=== PATIENT | female | born 1995 | race Caucasian/White ===

== ENCOUNTER 2022-11-15 13:05 | Outpatient (OUT) | payer OTHER, SELFPAY ==
--- NOTE | 2022-11-15 13:05 | US_ITS ---
[address] [address] Patient Name: OLEGARIO MACKEY MRN: [id number] date: 1995 Sex: F Assigned Patient Location: US Current Patient Location: Accession/Order Number: [id number] Exam Date: 11/15/2022 13:05 Report Date: 11/15/2022 17:01 At the request of: KINJAL ARIAS Procedure: US OB >= 14 weeks Fetus EXAMINATION: US OB >= 14 weeks Fetus HISTORY: MISSED PERIOD COMPARISON: No relevant comparison available. FINDINGS: position: Transverse head maternal left Heart rate: 146 bpm BPD: 3.8 cm, 17 weeks 4 days, 59% Head circumference: 14.7 cm, 17 weeks 6 days, 65% Abdominal circumference: 12.7 cm, 18 weeks 2 days, 77% Femur length: 2.6 cm, 17 weeks 6 days, 62% Estimated weight: 222 g, 10 ounces, 83% Femur length abdominal circumference: 20.38 Femur length BPD: 67.98 Femur length head circumference: 17.6 Clinical age: 17 weeks 3 days Clinical MARK ANTHONY: 04/22/2023 Ultrasound age: 17 weeks 6 days Ultrasound MARK ANTHONY: 04/19/2023 US/US OB >= 14 weeks Fetus IMPRESSION: Viable intrauterine gestation measuring 17 weeks 6 days Electronically authenticated by: ADRIAN PAULINO Date: 11/15/2022 17:01
== END 2022-11-15 13:06 | disposition home or self-care (01) ==
LOC: US 13:06
PROVIDERS: Visit Provider Obstetrics & Gynecology
DX: Z34.92 Encounter for supervision of normal pregnancy, unspecified, second trimester (principal); Z3A.17 17 weeks gestation of pregnancy
CPT/HCPCS: 76815

== ENCOUNTER 2022-12-10 20:53 | Outpatient (REF) | payer OTHER, SELFPAY ==
[2022-12-13 22:07] LABS: Age Gdln ACOG Testing Note (.); IGP, rfx Aptima HPV ASCU Note (.)
== END 2022-12-10 20:54 | disposition home or self-care (01) ==
LOC: LAB 20:53
PROVIDERS: Visit Provider Obstetrics & Gynecology
DX: Z01.419 Encounter for gynecological examination (general) (routine) without abnormal findings (principal)
CPT/HCPCS: G0145

== ENCOUNTER 2022-12-13 14:27 | Outpatient (OUT) | payer OTHER, SELFPAY ==
--- NOTE | 2022-12-13 | US_ITS ---
[address] [address] Patient Name: OLEGARIO MACKEY MRN: [id number] date: 1995 Sex: F Assigned Patient Location: US Current Patient Location: US Accession/Order Number: [id number] Exam Date: 12/13/2022 14:28 Report Date: 12/13/2022 15:56 At the request of: KINJAL ARIAS Procedure: US OB anatomy EXAMINATION: US OB anatomy, US OB transvaginal HISTORY: ANATOMY COMPARISON: No relevant comparison available. TECHNIQUE: Transabdominal sonographic examination was performed for obstetrical and evaluation. FINDINGS: Number: 1 Heart Rate: 164.0 bpm H.B. /min Amniotic Fluid Volume: Subjectively normal Placental Location: Posterior with lower margin 1.8 cm from os. Cervix Length: 4.0 cm; closed. ANATOMY: Normal Structures -cerebellum, choroid plexus, cisterna magna, lateral cerebral ventricles, orbits, midline falx, hard palate, four-chamber heart, RVOT, LVOT, stomach, kidneys, bladder, umbilical cord insertion into abdomen, three-vessel cord, cervical spine, thoracic spine, lumbar spine, sacral spine, right upper extremity, left upper extremity, right lower extremity, left lower extremity. SUBOPTIMALLY SEEN: None ABNORMALITIES: None BIOMETRY: BPD: 5.2 cm 21 weeks 6 days HC: 19.6 cm 21 weeks 5 days AC: 16.9 cm 21 weeks 6 days FL: 3.8 cm 22 weeks 0 days EFW:460.0 grams; 70% FL/AC: 22.2 FL/BPD: 71.6 HC/AC: 1.2 GESTATIONAL AGE: Age by EDC: 21 weeks 3 days MARK ANTHONY by EDC: 04/22/2023 Age by current US: 21 weeks 6 days MARK ANTHONY by current US: 04/19/2023 US/US OB anatomy IMPRESSION: 1. Single live intrauterine with growth detailed above. Electronically authenticated by: FIGUEROA FRAIRE Date: 12/13/2022 15:56
--- NOTE | 2022-12-13 | US_ITS ---
[address] [address] Patient Name: OLEGARIO MACKEY MRN: [id number] date: 1995 Sex: F Assigned Patient Location: US Current Patient Location: Accession/Order Number: [id number] Exam Date: 12/13/2022 14:29 Report Date: 12/13/2022 15:56 At the request of: KINJAL ARIAS Procedure: US OB transvaginal EXAMINATION: US OB anatomy, US OB transvaginal HISTORY: ANATOMY COMPARISON: No relevant comparison available. TECHNIQUE: Transabdominal sonographic examination was performed for obstetrical and evaluation. FINDINGS: Number: 1 Heart Rate: 164.0 bpm H.B. /min Amniotic Fluid Volume: Subjectively normal Placental Location: Posterior with lower margin 1.8 cm from os. Cervix Length: 4.0 cm; closed. ANATOMY: Normal Structures -cerebellum, choroid plexus, cisterna magna, lateral cerebral ventricles, orbits, midline falx, hard palate, four-chamber heart, RVOT, LVOT, stomach, kidneys, bladder, umbilical cord insertion into abdomen, three-vessel cord, cervical spine, thoracic spine, lumbar spine, sacral spine, right upper extremity, left upper extremity, right lower extremity, left lower extremity. SUBOPTIMALLY SEEN: None ABNORMALITIES: None BIOMETRY: BPD: 5.2 cm 21 weeks 6 days HC: 19.6 cm 21 weeks 5 days AC: 16.9 cm 21 weeks 6 days FL: 3.8 cm 22 weeks 0 days EFW:460.0 grams; 70% FL/AC: 22.2 FL/BPD: 71.6 HC/AC: 1.2 GESTATIONAL AGE: Age by EDC: 21 weeks 3 days MARK ANTHONY by EDC: 04/22/2023 Age by current US: 21 weeks 6 days MARK ANTHONY by current US: 04/19/2023 US/US OB transvaginal IMPRESSION: 1. Single live intrauterine with growth detailed above. Electronically authenticated by: FIGUEROA FRAIRE Date: 12/13/2022 15:56
== END 2022-12-13 14:28 | disposition home or self-care (01) ==
LOC: US 14:27
PROVIDERS: Visit Provider Obstetrics & Gynecology
DX: Z36.89 Encounter for other specified antenatal screening (principal)
CPT/HCPCS: 76805; 76817

== ENCOUNTER 2022-12-19 15:23 | Outpatient (OUT) | payer OTHER, SELFPAY ==
[2022-12-19 16:28] LABS: Basophils Percent Auto 0.3 % (0.2-2.0); Eosinophils Absolute Auto 0.1 10^3/uL (0.0-0.7); Eosinophils Percent Auto 1.4 % (0.9-7.0); Hematocrit 35.4 % (36.0-48.0); Hemoglobin 11.9 g/dL (12.0-16.0); Immature Granulocytes Abs Auto 0.03 10^3/uL (0.00-0.03); Immature Granulocytes Pct Auto 0.3 % (0.0-0.5); Lymphocytes Percent Auto 23.4 % (20.5-60.0); Mean Corpuscular HGB Conc 33.6 g/dL (29.9-35.2); Mean Corpuscular Hemoglobin 30.6 pg (26.7-34.0); Monocytes Absolute Auto 0.5 10^3/uL (0.3-0.8); Monocytes Percent Auto 6.1 % (1.7-12.0); Neutrophils Absolute Auto 5.9 10^3/uL (1.4-6.5); Neutrophils Percent Auto 68.5 % (43.0-75.0); Platelet Count 236 10^3/uL (150-450); Red Blood Count 3.89 10^6/uL (4.20-5.40); Red Cell Distribution Width 12.6 % (11.0-15.0); White Blood Count 8.6 10^3/uL (4.0-11.0)
[2022-12-19 16:43] LABS: Estimated Average Glucose 80 mg/dL; Glycohemoglobin A1C 4.4 % (4.5-6.2)
[2022-12-19 17:05] LABS: Thyroid Stimulating Hormone 0.977 uIU/mL (0.358-3.740)
[2022-12-21 06:09] LABS: Rubella Antibodies, IgG 1.05 index (Immune >0.99)
[2022-12-21 07:09] LABS: HBsAg Screen Negative (Negative)
[2022-12-21 10:12] LABS: Rapid Plasma Reagin, Quant Non Reactive (NonRea<1:1)
[2022-12-25 12:11] LABS: HCV Ab Reactive (Non Reactive)
[2022-12-26 15:10] LABS: HIV Ab/p24 Ag Screen Non Reactive (Non Reactive)
== END 2022-12-19 15:24 | disposition home or self-care (01) ==
PROVIDERS: Visit Provider Obstetrics & Gynecology
DX: Z13.1 Encounter for screening for diabetes mellitus (principal); N92.6 Irregular menstruation, unspecified
CPT/HCPCS: 36415; 83036; 84443; 85025; 86592; 86706; 86762; 86803; 86850; 86900; 86901; 87086; 87389

== ENCOUNTER 2023-01-04 13:58 | Outpatient (OUT) | payer OTHER, SELFPAY ==
[2023-01-04 15:01] LABS: Basophils Percent Auto 0.3 % (0.2-2.0); Eosinophils Absolute Auto 0.1 10^3/uL (0.0-0.7); Eosinophils Percent Auto 0.9 % (0.9-7.0); Hemoglobin 11.5 g/dL (12.0-16.0); Immature Granulocytes Abs Auto 0.03 10^3/uL (0.00-0.03); Immature Granulocytes Pct Auto 0.3 % (0.0-0.5); Lymphocytes Absolute Auto 2.1 10^3/uL (1.2-3.8); Lymphocytes Percent Auto 20.4 % (20.5-60.0); Mean Corpuscular HGB Conc 33.8 g/dL (29.9-35.2); Mean Corpuscular Volume 91.6 fL (81.0-99.0); Mean Platelet Volume 10.2 fL (9.5-13.5); Monocytes Absolute Auto 0.5 10^3/uL (0.3-0.8); Monocytes Percent Auto 4.4 % (1.7-12.0); Neutrophils Absolute Auto 7.6 10^3/uL (1.4-6.5); Neutrophils Percent Auto 73.7 % (43.0-75.0); Platelet Count 289 10^3/uL (150-450); Red Blood Count 3.71 10^6/uL (4.20-5.40); Red Cell Distribution Width 12.4 % (11.0-15.0); White Blood Count 10.3 10^3/uL (4.0-11.0)
[2023-01-04 15:16] LABS: Glucose 1 Hour 151 mg/dL
== END 2023-01-04 13:59 | disposition home or self-care (01) ==
LOC: LAB 14:03
PROVIDERS: Visit Provider Obstetrics & Gynecology
DX: Z13.1 Encounter for screening for diabetes mellitus (principal)
CPT/HCPCS: 36415; 82950; 85025

== ENCOUNTER 2023-01-10 17:13 | Outpatient (OUT) | payer OTHER, SELFPAY ==
--- NOTE | 2023-01-10 17:18 | US_ITS ---
[address] [address] Patient Name: OLEGARIO MACKEY MRN: [id number] date: 1995 Sex: F Assigned Patient Location: US Current Patient Location: LAB Accession/Order Number: [id number] Exam Date: 01/10/2023 17:20 Report Date: 01/11/2023 17:35 At the request of: KINJAL ARIAS Procedure: US OB placenta EXAM: US OB placenta, US OB transvaginal HISTORY: PLACENTA PREVIA ANTEPARTUM O44.00 COMPARISON: None. TECHNIQUE: Transabdominal and transvaginal images FINDINGS: Jar[place] intrauterine gestation position: Cephalic presentation, longitudinal lie Placenta: Posterior. Grade 0. Placental edge is 4.4 cm from the internal os Heart rate: 151 bpm Cervix: Mild dilation of the endocervical canal measuring 2 mm. Funneling of the internal os measuring 1.3 cm in length and dilated up to 0.8 cm. The cervix measures a total of 4.7 cm long US/US OB placenta IMPRESSION: Dilation of the endocervical canal and funneling of the internal os Placental edge 4.4 cm from the internal os Electronically authenticated by: ADRIAN PAULINO Date: 01/11/2023 17:35
--- NOTE | 2023-01-10 17:19 | US_ITS ---
[address] [address] Patient Name: OLEGARIO MACKEY MRN: [id number] date: 1995 Sex: F Assigned Patient Location: US Current Patient Location: LAB Accession/Order Number: [id number] Exam Date: 01/10/2023 17:20 Report Date: 01/11/2023 17:35 At the request of: KINJAL ARIAS Procedure: US OB transvaginal EXAM: US OB placenta, US OB transvaginal HISTORY: PLACENTA PREVIA ANTEPARTUM O44.00 COMPARISON: None. TECHNIQUE: Transabdominal and transvaginal images FINDINGS: Jar[place]illo intrauterine gestation position: Cephalic presentation, longitudinal lie Placenta: Posterior. Grade 0. Placental edge is 4.4 cm from the internal os Heart rate: 151 bpm Cervix: Mild dilation of the endocervical canal measuring 2 mm. Funneling of the internal os measuring 1.3 cm in length and dilated up to 0.8 cm. The cervix measures a total of 4.7 cm long US/US OB transvaginal IMPRESSION: Dilation of the endocervical canal and funneling of the internal os Placental edge 4.4 cm from the internal os Electronically authenticated by: ADRIAN PAULINO Date: 01/11/2023 17:35
== END 2023-01-10 17:14 | disposition home or self-care (01) ==
PROVIDERS: Visit Provider Obstetrics & Gynecology
DX: O44.00 Complete placenta previa NOS or without hemorrhage, unspecified trimester (principal); Z3A.00 Weeks of gestation of pregnancy not specified
CPT/HCPCS: 76815; 76817

== ENCOUNTER 2023-01-18 13:21 | Outpatient (OUT) | payer OTHER, SELFPAY ==
[2023-01-18 13:45] LABS: Glucose Fasting 68 mg/dL (74-106)
== END 2023-01-18 13:22 | disposition home or self-care (01) ==
LOC: LAB 13:21
PROVIDERS: Visit Provider Obstetrics & Gynecology
DX: Z13.1 Encounter for screening for diabetes mellitus (principal)
CPT/HCPCS: 36415; 82951; 82952

== ENCOUNTER 2023-02-04 16:25 | Outpatient (OUT) | payer OTHER, SELFPAY ==
--- NOTE | 2023-02-04 16:50 | US_ITS ---
[address] [address] Patient Name: OLEGARIO MACKEY MRN: [id number] date: 1995 Sex: F Assigned Patient Location: LAB Current Patient Location: Accession/Order Number: [id number] Exam Date: 02/04/2023 16:51 Report Date: 02/05/2023 07:17 At the request of: KINJAL ARIAS Procedure: US OB cervical length EXAMINATION: US OB cervical length HISTORY: PLACENTA PREVIA COMPARISON: 09/09/2022 FINDINGS: position: Cephalic presentation, longitudinal lie Amniotic fluid: Subjectively normal Placenta: Posterior fundal. The placental edge is 8.2 cm from the internal cervical os Heart rate: 148 bpm Cervix: Closed, 4.2 cm US/US OB cervical length IMPRESSION: Interval resolution of placenta previa Closed cervix measuring 4.2 cm in length Electronically authenticated by: ADRIAN PAULINO Date: 02/05/2023 07:17
[2023-02-08 20:09] LABS: HCV Ab Reactive (Non Reactive)
== END 2023-02-04 16:26 | disposition home or self-care (01) ==
LOC: LAB 16:26
PROVIDERS: Visit Provider Obstetrics & Gynecology
DX: Z34.92 Encounter for supervision of normal pregnancy, unspecified, second trimester (principal); Z36.86 Encounter for antenatal screening for cervical length
CPT/HCPCS: 36415; 76817; 86803; 87522

== ENCOUNTER 2023-03-25 21:50 | Outpatient (REF) | payer OTHER, SELFPAY | END 2023-03-25 21:51 | disposition home or self-care (01) | LOC: LAB 21:50 | PROVIDERS: Visit Provider Physician Assistant | DX: Z34.93 Encounter for supervision of normal pregnancy, unspecified, third trimester (principal); R73.09 Other abnormal glucose | CPT/HCPCS: 87081 ==

== ENCOUNTER 2023-03-28 08:07 | Outpatient (OUT) | payer OTHER, SELFPAY ==
--- NOTE | 2023-03-28 | US_ITS ---
[address] [address] Patient Name: OLEGARIO MACKEY MRN: [id number] date: 1995 Sex: F Assigned Patient Location: [facility] Current Patient Location: LAB Accession/Order Number: [id number] Exam Date: 03/28/2023 18:00 Report Date: 03/30/2023 04:17 At the request of: KINJAL ARIAS Procedure: US OB growth EXAMINATION: US OB growth HISTORY: ELEVATED GLUCOSE TESTING COMPARISON: Ultrasound OB anatomy 12/13/2022 FINDINGS: Heart Rate: 145.9 bpm Number: 1.0 Position: CEPHALIC Amniotic Fluid Volume: 19.4 cm Maximum Vertical Pocket: 6.5 cm BIOMETRY: BPD: 9.0 cm cm; 36 weeks 3 days; 62% HC: 32.4 cmcm; 36 weeks 5 days; 27% AC: 33.2 cm cm; 37 weeks 1 days; 79% FL: 7.1 cm cm; 36 weeks 1 days; 40% EFW: 3020.3 grams; 62% FL/AC: 21.3 FL/BPD: 78.4 HC/AC: 1.0 GESTATIONAL AGE: Age by EDC: 36 weeks 3 days MARK ANTHONY by EDC: 04/22/2023 Age by US: 36 weeks 4 days MARK ANTHONY by US: 04/21/2023 US/US OB growth IMPRESSION: 1. Single live intrauterine with growth detailed above. Electronically authenticated by: FIGUEROA FRAIRE Date: 03/30/2023 04:17
--- NOTE | 2023-03-28 | US_ITS ---
[address] [address] Patient Name: OLEGARIO MACKEY MRN: [id number] date: 1995 Sex: F Assigned Patient Location: [facility] Current Patient Location: Accession/Order Number: [id number] Exam Date: 03/28/2023 18:00 Report Date: 03/30/2023 04:19 At the request of: KINJAL ARIAS Procedure: US OB BPP w non-stress EXAMINATION: US OB BPP w non-stress HISTORY: ELEVATED GLUCOSE TESTING COMPARISON: No relevant comparison available. TECHNIQUE: Ultrasound biophysical profile was performed in the radiology department. BREATHING MOVEMENTS: 2.0 GROSS BODY MOVEMENTS: 2.0 TONE: 2.0 QUALITATIVE AMNIOTIC FLUID VOLUME: 2.0 PRESENTATION: CEPHALIC HEART RATE: 145.9 bpm bpm. AMNIOTIC FLUID VOLUME: 19.4 cm GESTATIONAL AGE: 36 weeks 3 days CONCLUSION: Total biophysical profile score 8.0. Electronically authenticated by: FIGUEROA FRAIRE Date: 03/30/2023 04:19
[2023-03-28 18:59] VITALS: BP 120/72; PULSE 101
== END 2023-03-28 19:54 | disposition home or self-care (01) ==
LOC: US 08:08 → FBC 18:14
PROVIDERS: Visit Provider Obstetrics & Gynecology
DX: Z34.93 Encounter for supervision of normal pregnancy, unspecified, third trimester (principal); R73.09 Other abnormal glucose; Z3A.36 36 weeks gestation of pregnancy
CPT/HCPCS: 76816; 76818

== ENCOUNTER 2023-04-01 07:45 | Outpatient (OUT) | payer OTHER, SELFPAY ==
[2023-04-01 18:07] VITALS: BP 125/61; PULSE 111
== END 2023-04-01 18:35 | disposition home or self-care (01) ==
LOC: FBCO 07:45 → FBC 18:04
PROVIDERS: Visit Provider Obstetrics & Gynecology
DX: Z34.93 Encounter for supervision of normal pregnancy, unspecified, third trimester (principal); R73.09 Other abnormal glucose
CPT/HCPCS: 59025

== ENCOUNTER 2023-04-04 07:12 | Outpatient (OUT) | payer OTHER, SELFPAY ==
--- NOTE | 2023-04-04 | US_ITS ---
[address] [address] Patient Name: OLEGARIO MACKEY MRN: [id number] date: 1995 Sex: F Assigned Patient Location: [facility] Current Patient Location: Accession/Order Number: [id number] Exam Date: 04/04/2023 18:00 Report Date: 04/04/2023 23:19 At the request of: KINJAL ARIAS Procedure: US OB BPP w non-stress EXAMINATION: US OB BPP w non-stress HISTORY: ELEVATED GLUCOSE TEST R73.09 COMPARISON: Ultrasound OB biophysical 03/28/2023 TECHNIQUE: Ultrasound biophysical profile was performed in the radiology department. BREATHING MOVEMENTS: 2.0 GROSS BODY MOVEMENTS: 2.0 TONE: 2.0 QUALITATIVE AMNIOTIC FLUID VOLUME: 2.0 PRESENTATION: CEPHALIC HEART RATE: 162.7 bpm bpm. AMNIOTIC FLUID VOLUME: 19.1 cm GESTATIONAL AGE: 37 weeks 3 days CONCLUSION: Total biophysical profile score 8.0. Electronically authenticated by: FIGUEROA FRAIRE Date: 04/04/2023 23:19
[2023-04-04 18:45] VITALS: BP 127/79; PULSE 98
== END 2023-04-04 19:13 | disposition home or self-care (01) ==
LOC: US 07:12 → FBC 18:08
PROVIDERS: Visit Provider Obstetrics & Gynecology
DX: Z34.93 Encounter for supervision of normal pregnancy, unspecified, third trimester (principal); R73.09 Other abnormal glucose; Z3A.37 37 weeks gestation of pregnancy
CPT/HCPCS: 76818

== ENCOUNTER 2023-04-15 07:55 | Outpatient (OUT) | payer OTHER, SELFPAY ==
[2023-04-15 21:23] VITALS: BP 120/65; PULSE 87; RESP 18; TEMP 37.2
== END 2023-04-15 22:00 | disposition home or self-care (01) ==
LOC: FBCO 21:17 → FBC 21:17
PROVIDERS: Visit Provider Obstetrics & Gynecology
DX: Z34.93 Encounter for supervision of normal pregnancy, unspecified, third trimester (principal); R73.09 Other abnormal glucose
CPT/HCPCS: 59025

== ENCOUNTER 2023-04-16 05:25 | Inpatient (IN) | payer OTHER, SELFPAY ==
[2023-04-16] VITALS (38 sets, daily range): BP systolic 92–125; BP diastolic 36–74; PULSE 71–99; RESP 13–23; TEMP 36.6–37.7; O2SAT 97–100
[2023-04-16 06:38] LABS: Amphetamine Screen Urine NEGATIVE (NEGATIVE); Barbiturates Screen Urine NEGATIVE (NEGATIVE); Benzodiazepines Screen Urine NEGATIVE (NEGATIVE); Buprenorphine Screen Urine NEGATIVE (NEGATIVE); Cannabinoid Screen Urine POSITIVE (NEGATIVE); Cocaine Screen Urine NEGATIVE (NEGATIVE); Methadone Screen Urine NEGATIVE (NEGATIVE); Methamphetamines Screen Urine NEGATIVE (NEGATIVE); Opiate Screen Urine NEGATIVE (NEGATIVE); Oxycodone Screen Urine NEGATIVE (NEGATIVE); Phencyclidine Screen Urine NEGATIVE (NEGATIVE); Tricyclic Antidepressant Urine NEGATIVE (NEGATIVE)
[2023-04-16] MEDS: 0.9 % SODIUM CHLORIDE 1,000 ML 1000 ML IV ×2 (06:39→07:27)
[2023-04-16 06:56] LABS: Basophils Percent Auto 0.4 % (0.2-2.0); Eosinophils Absolute Auto 0.1 10^3/uL (0.0-0.7); Eosinophils Percent Auto 1.5 % (0.9-7.0); Immature Granulocytes Abs Auto 0.03 10^3/uL (0.00-0.03); Immature Granulocytes Pct Auto 0.4 % (0.0-0.5); Lymphocytes Percent Auto 26.9 % (20.5-60.0); Mean Corpuscular HGB Conc 31.4 g/dL (29.9-35.2); Mean Corpuscular Hemoglobin 30.9 pg (26.7-34.0); Mean Corpuscular Volume 98.3 fL (81.0-99.0); Mean Platelet Volume 10.3 fL (9.5-13.5); Monocytes Absolute Auto 0.5 10^3/uL (0.3-0.8); Monocytes Percent Auto 6.8 % (1.7-12.0); Neutrophils Absolute Auto 4.8 10^3/uL (1.4-6.5); Platelet Count 235 10^3/uL (150-450); Red Blood Count 3.56 10^6/uL (4.20-5.40); Red Cell Distribution Width 12.5 % (11.0-15.0); White Blood Count 7.6 10^3/uL (4.0-11.0)
[2023-04-16] MEDS: CITRIC ACID/SODIUM CITRATE 30 ML SOLUTION ORACIT SHOHL'S SOLN PO (07:28)
[2023-04-16] MEDS: METOCLOPRAMIDE HCL 10 MG/2 ML VIAL IVP (07:29)
[2023-04-16] MEDS: FAMOTIDINE/PF 20 MG/2 ML VIAL IV (07:31)
[2023-04-16] MEDS: CEFAZOLIN SODIUM/DEXTROSE,ISO 2 GM/50 ML PIGGYBACK IV ×2 (07:34→15:07)
--- NOTE | 2023-04-16 08:25 | PM.ONB ---
Brief Operative Note Date of procedure: 04/16/23 Pre-op diagnosis: iup at 39wks, hep c, previous c/s Post-op diagnosis: same as pre-op Procedure: NAME OF PROCEDURE: [ section ] PROCEDURE: Patient was taken back to the Operating Room where she was given a spinal anesthesia with Duramorph without difficulty. She was prepped and draped in the normal sterile fashion. A Pfannenstiel skin incision was then made 2 cm above the symphysis pubis and carried down to underlying rectus fascia using a Bovie. The fascia was incised in the midline and extended laterally using Tamayo scissors. Two Mitra clamps were placed on the superior aspect of the fascia and dissected off the underlying rectus muscles. The same was performed on the inferior aspect as well. The muscles were then in the midline. Peritoneum was identified and entered bluntly. The peritoneum was then extended superiorly and inferiorly with good visualization of the bladder. The bladder blade was inserted. A low transverse incision was made on the patient's uterus and extended laterally digitally. The was then delivered atraumatically after the bladder blade was removed in the cephalic position. The cord was clamped and cut. Cord blood was obtained. The was handed off to awaiting team. The patient's placenta was spontaneously delivered. The uterus was then exteriorized. The uterus was cleared of all clots and debris. The bladder blade was reinserted. The patient's uterine incision was closed using #0 Vicryl in a running lock fashion. Excellent hemostasis was assured. The uterus was then returned to the patient's abdomen. The patient's abdomen was copiously irrigated using warm saline. Peritoneal gutters were cleared of all clots and debris. Again excellent hemostasis was assured. The patient's peritoneum was closed using 3-0 Vicryl in a running fashion. The patient's fascia was closed using #0 Vicryl in a running fashion. The patient's skin was closed using 4-0 Vicryl subcuticularly. The patient tolerated the procedure well. Sponge, lap, and needle counts were correct x2. The patient was taken to the Recovery Room in stable condition. Anesthesia: spinal Surgeon: Scott Nicolas Aluminum Hydroxide Process Operator: Merline Mon Estimated blood loss (mL): 575 Pathology: other (placenta) Condition: stable Disposition: floor Urinary Catheter Management Urinary Catheter Management Urethral: Cath placed during this visit: no
--- NOTE | 2023-04-16 08:26 | P.OBPRC_ITS ---
Procedure Pre-op/Post-op diagnoses: Pre-Op/Post-Op Diagnoses Operation Date: 04/16/23 07:30 <No data on this case meets the specified criteria> Procedure: Procedures Operation Date: 04/16/23 07:30 Actual Procedure Side Surgeon p Repeat Not Applicable Scott Nicolas DO Rehab Technician: Merline Mon Estimated blood loss (mL): 575 Disposition: floor Anesthesia type: Spinal
[2023-04-16] MEDS: LACTATED RINGER'S SOLUTION 1,000 ML 50 ML IV (08:28)
[2023-04-16] MEDS: OXYTOCIN/0.9 % SODIUM CHLORIDE 20 UNITS/1,000 ML PLAST..BAG 200 UNIT IV (08:52)
[2023-04-16] MEDS: KETOROLAC TROMETHAMINE 30 MG/ML VIAL IVP ×2 (15:07→21:23)
[2023-04-16] MEDS: ENOXAPARIN SODIUM 40 MG/0.4 ML SYRINGE SUBQ (20:15)
--- NOTE | 2023-04-17 00:14 | PC.NURSE ---
Pt requests to have catheter removed. RN encourages oral hydration. Pt verbalizes understanding. Urine measuring hat placed in toilet.
[2023-04-17 05:37] VITALS: BP 114/69
[2023-04-17] MEDS: KETOROLAC TROMETHAMINE 30 MG/ML VIAL IVP ×3 (05:42→21:19)
[2023-04-17 05:46] VITALS: BP 114/69; PULSE 71; RESP 16; TEMP 36.9; O2SAT 97
[2023-04-17 06:55] LABS: Basophils Percent Auto 0.4 % (0.2-2.0); Eosinophils Absolute Auto 0.1 10^3/uL (0.0-0.7); Eosinophils Percent Auto 1.1 % (0.9-7.0); Hematocrit 27.6 % (36.0-48.0); Immature Granulocytes Abs Auto 0.04 10^3/uL (0.00-0.03); Immature Granulocytes Pct Auto 0.4 % (0.0-0.5); Lymphocytes Absolute Auto 2.7 10^3/uL (1.2-3.8); Lymphocytes Percent Auto 25.4 % (20.5-60.0); Mean Corpuscular HGB Conc 32.6 g/dL (29.9-35.2); Mean Corpuscular Hemoglobin 31.3 pg (26.7-34.0); Mean Corpuscular Volume 95.8 fL (81.0-99.0); Mean Platelet Volume 10.9 fL (9.5-13.5); Monocytes Absolute Auto 0.7 10^3/uL (0.3-0.8); Neutrophils Percent Auto 65.7 % (43.0-75.0); Platelet Count 213 10^3/uL (150-450); Red Blood Count 2.88 10^6/uL (4.20-5.40); Red Cell Distribution Width 12.7 % (11.0-15.0); White Blood Count 10.6 10^3/uL (4.0-11.0)
[2023-04-17 08:30] VITALS: RESP 16; TEMP 36.8
[2023-04-17 08:44] VITALS: BP 115/65
[2023-04-17] MEDS: DOCUSATE SODIUM 100 MG CAPSULE PO ×2 (09:53→21:19)
--- NOTE | 2023-04-17 14:52 | PC.NURSE ---
states baby would not sustain a latch and was on and off for an hour latching and staying just minutes each time, given hand pump with instructions on use, instructed to feed baby at breast every 2-3 hours and pump and feed any feeding that baby does not feed well, verbalizes understanding
[2023-04-17 16:23] VITALS: BP 119/65
[2023-04-17 16:32] VITALS: BP 119/65; PULSE 84; RESP 16; TEMP 36.5
--- NOTE | 2023-04-17 20:14 | PM.OBPN ---
OB - PN: Subj Subjective Patient comments: no complaints and pain well controlled [place] status: doing well Exam Constitutional Vital Signs, click to edit/add: Last Vital Signs Temp 97.7 F 04/17/23 16:32 Pulse 84 04/17/23 16:32 Resp 16 04/17/23 16:32 BP 119/65 04/17/23 16:32 Pulse Ox 97 04/17/23 05:46 O2 Del Method Room Air 04/17/23 16:32 Documenting provider has reviewed patient's vital signs: yes Common normals: no apparent distress Respiratory Common normals: normal respiratory effort and clear to auscultation bilaterally Cardio Common normals: regular rate and regular rhythm GI Common normals: Normal to inspection, nondistended, normoactive bowel sounds present Extremity Common normals: no clubbing, cyanosis or edema Results Labs Labs: Short CBC 04/17/23 Range/Units 06:30 WBC 10.6 (4.0-11.0) 10^3/uL Hgb 9.0 L (12.0-16.0) g/dL Hct 27.6 L (36.0-48.0) % Plt Count 213 (150-450) 10^3/uL Urinary Catheter Management Urinary Catheter Management Urethral: Cath placed during this visit: yes, but has since been removed by the nurse Removal date: 04/16/23 Removal time: 23:45 OB - PN: A/P Plan - day: 1 Plan: routine postop care Time Spent with Patient Time: Total time spent is greater than 50% in coordination of care (as documented) at patient's floor/unit and/or counseling patient: Total time spent with greater than 50% in coordination of care (as documented) at patient's floor/unit and/or counseling patient: less than 15 minutes
[2023-04-17] MEDS: ENOXAPARIN SODIUM 40 MG/0.4 ML SYRINGE SUBQ (21:19)
[2023-04-18 00:20] VITALS: BP 124/85; PULSE 78
[2023-04-18 00:24] VITALS: RESP 18; TEMP 36.2
--- NOTE | 2023-04-18 07:28 | W.PC.ACHO ---
Registration Status: ADM IN Primary Language: [place] Preferred Language: [place] Active Medications Generic Name Dose Route Start Last Admin Trade Name Freq PRN Reason Stop Dose Admin Al Hydroxide/Mg Hydroxide 2,400 mg 04/16/23 08:27 Magnesium Hydroxide 2,400 Mg/10 Ml Oral.Susp PO Q6H PRN Dyspepsia Diphtheria/Pertussis/Tetanus Vacc 0.5 ml 04/18/23 09:00 Adacel Diph,Pertuss(Acell),Tet Vac/Pf 0.5 Ml Adult Syringe IM 04/18/23 09:01 .ONCE ONE Docusate Sodium 100 mg 04/17/23 09:00 04/17/23 21:19 Docusate Sodium 100 Mg Capsule PO 100 mg BID JOSE Administration Enoxaparin Sodium 40 mg 04/16/23 20:00 04/17/23 21:19 Enoxaparin Sodium 40 Mg/0.4 Ml Syringe SUBQ 40 mg Q24H JOSE Administration Sodium Chloride 1,000 mls @ 125 mls/hr 04/16/23 08:30 Sodium Chloride 0.9% 1,000 Ml IV .Q8H JOSE Ibuprofen 800 mg 04/16/23 08:27 Ibuprofen 400 Mg Tablet PO Q8H PRN Pain Ketorolac Tromethamine 30 mg 04/16/23 08:27 04/17/23 21:19 Ketorolac Tromethamine 30 Mg/Ml Vial IVP 04/18/23 08:28 30 mg Q6H PRN Administration Pain Measles/Mumps/Rubella Vaccine Live 0.5 ml 04/18/23 09:00 Measles,Mumps,Rubella Vacc/Pf 0.5 Ml Vial SQ 04/18/23 09:01 .ONCE ONE Ondansetron HCl 4 mg 04/16/23 08:27 Ondansetron Pf 4 Mg/2 Ml Vial IV Q6H PRN Nausea And Vomiting Ondansetron HCl 4 mg 04/16/23 08:27 Ondansetron 4 Mg Rapdis Tablet PO Q6H PRN Nausea And Vomiting Oxycodone/Acetaminophen 1 tab 04/16/23 08:27 Oxycodone Hcl/Acetaminophen 5mg/325mg PO Q4H PRN Pain Scale 4-6 Oxycodone/Acetaminophen 2 tab 04/16/23 08:27 Oxycodone Hcl/Acetaminophen 5mg/325mg PO Q4H PRN Pain Scale 7-10 Senna 17.2 mg 04/16/23 20:00 Sennosides 8.6 Mg Tablet PO QHS PRN Constipation Simethicone 80 mg 04/16/23 08:27 Simethicone 80 Mg Tab.Chew PO QID PRN Abdominal Distention Respiratory Oxygen Delivery Method Room Air Oxygen Delivery Method Room Air Oxygen Delivery Method Room Air Cardiology Heart Sounds Regular Heart Sounds Strong,Regular Bowels Bowel Pattern No Bowel Movement Bowel Pattern No Bowel Movement Renal Bladder Pattern Continent Bladder Pattern Continent Catheter Date Urinary Catheter Removed 04/16/23 [Urethral] Time Urinary Catheter 23:45 Discontinued [Urethral]
[2023-04-18 08:50] VITALS: RESP 16; TEMP 36.7
[2023-04-18 09:07] VITALS: BP 120/56; PULSE 76
--- NOTE | 2023-04-18 09:36 | PM.OBPN ---
OB - PN: Subj Subjective Patient comments: no complaints and pain well controlled status: doing well feeding status: exclusively Exam Constitutional Vital Signs, click to edit/add: Last Vital Signs Temp 97.2 F L 04/18/23 00:24 Pulse 76 04/18/23 09:07 Resp 18 04/18/23 00:24 BP 120/56 04/18/23 09:07 Pulse Ox 97 04/17/23 05:46 O2 Del Method Room Air 04/18/23 00:24 Documenting provider has reviewed patient's vital signs: yes Common normals: no apparent distress HENMT Common normals: normocephalic Eye Common normals: EOMs intact bilaterally Neck & C-Spine Common normals: full ROM Lymph Lymphatic: no lymphadenopathy noted Chest Common normals: inspection of chest normal Respiratory Common normals: normal respiratory effort Cardio Common normals: regular rate Rate: regular rate Rhythm: regular rhythm GI Common normals: Normal to inspection, nondistended, normoactive bowel sounds present Inspection: normal to inspection Palpation: soft Common normals: no CVA tenderness Back & Pelvis Common normals: no CVA tenderness Extremity Common normals: normal to inspection Neuro Common normals: oriented x3 Sensorium/orientation: awake, alert, oriented to person, oriented to place and oriented to time Urinary Catheter Management Urinary Catheter Management Urethral: Cath placed during this visit: yes, but has since been removed by the nurse Removal date: 04/16/23 Removal time: 23:45 OB - PN: A/P Plan - day: 2 Plan: discharge home Time Spent with Patient Time: Total time spent is greater than 50% in coordination of care (as documented) at patient's floor/unit and/or counseling patient: Total time spent with greater than 50% in coordination of care (as documented) at patient's floor/unit and/or counseling patient: less than 15 minutes
[2023-04-18] MEDS: IBUPROFEN 400 MG TABLET 800 MG PO (11:17)
[2023-04-18] MEDS: DOCUSATE SODIUM 100 MG CAPSULE PO (11:17)
--- NOTE | 2023-04-20 | DS_ITS ---
DISCHARGE DATE: 04/20/2023 PRIMARY DIAGNOSES: 1. Intrauterine at 39 weeks. 2. Hepatitis C. 3. Previous . PROCEDURE: section. HOSPITAL COURSE: As expected. Please see chart for full details. LABORATORY DATA: Please see chart. COMPLICATIONS: None. DISCHARGE CONDITION: Stable. CONSULTATION: Anesthesia. DISCHARGE INSTRUCTIONS: 1. Diet: Regular. 2. Medications: a. Percocet 5/325 one to two p.o. every 4-6 hours p.r.n. pain. b. Motrin 800 one p.o. every 8 hours p.r.n. pain. 3. Followup in one week. Restrictions: Pelvic rest for 6 weeks. No heavy lifting[address] May drive when pain free and no longer on narcotics. MTDD
[2023-04-22 08:07] LABS: Cannabinoid Positive (.); Carboxy THC Conf, MS, UR 288 ng/mL (Cutoff=10)
--- NOTE | 2023-04-30 15:19 | CM.NOTE ---
Called cord results to [facility].
== END 2023-04-18 13:30 | disposition home or self-care (01) | DRG 540 ==
PROVIDERS: Admitting Provider Obstetrics & Gynecology; Visit Provider Obstetrics & Gynecology
PROC: 10D00Z1 Extraction of Products of Conception, Low, Open Approach (ICD-10-PCS; CPT 59514; principal; 2023-04-16 07:30)
DX: O34.211 Maternal care for low transverse scar from previous cesarean delivery (principal); O98.42 Viral hepatitis complicating childbirth; B19.20 Unspecified viral hepatitis C without hepatic coma; O99.334 Smoking (tobacco) complicating childbirth; F17.210 Nicotine dependence, cigarettes, uncomplicated; O99.892 Other specified diseases and conditions complicating childbirth; R82.5 Elevated urine levels of drugs, medicaments and biological substances; Z3A.39 39 weeks gestation of pregnancy; Z37.0 Single live birth; Z88.2 Allergy status to sulfonamides; Z88.8 Allergy status to other drugs, medicaments and biological substances
CPT/HCPCS: 36415; 59025; 59050; 80307; 80349; 85025; 86850; 86900; 86901; 88307; 96372; 96374; 96375; 96376